=== PATIENT | male | born 1990 | race Caucasian/White ===

== ENCOUNTER 2025-01-13 22:06 | Emergency (ER) | payer MEDICAID ==
[~2025-01-13] VITALS: Ht 160 cm; Wt 99.8 kg
[2025-01-14] MEDS ORDERED: ACETAMINOPHEN 500 MG TABLET ONE (00:31)
[2025-01-14] MEDS: ACETAMINOPHEN 500 MG TABLET PO ONE (00:32)
[2025-01-14] MEDS ORDERED: NAPR-1009 PO (00:53)
[2025-01-14] MEDS ORDERED: CYCL10TA9 PO (00:53)
[2025-01-14 01:06] VITALS: BP 139/97; TEMP 98.2; O2SAT 96
== END 2025-01-14 01:07 | disposition home or self-care (01) ==
LOC: ER 22:49
DX: S20.219A Contusion of unspecified front wall of thorax, initial encounter (principal); R03.0 Elevated blood-pressure reading, without diagnosis of hypertension; M54.50 Low back pain, unspecified; Z88.6 Allergy status to analgesic agent; V43.52XA Car driver injured in collision with other type car in traffic accident, initial encounter; Y93.89 Activity, other specified; Y92.488 Other paved roadways as the place of occurrence of the external cause; Y99.8 Other external cause status
CPT/HCPCS: 71046; 72100; A4606; A4663; A9150